=== PATIENT | male | born 1975 | race African-American/Black ===

== ENCOUNTER 2019-11-15 16:42 | Emergency (ER) | payer OTHER ==
[~2019-11-15] VITALS: Ht 185.4 cm; Wt 54.0 kg
--- NOTE | ~2019-11-15 | EMS ---
[address] [address] EMS Patient Care Report Name: PAULA POMPA Room #: DEP SANJAY Harrell#: [id number] Admission: 11/15/19 Attend Phys: Discharge: 11/15/19 Date of : 77 Report #: [id number] THIS REPORT FOR: //name// Report Transmitted: 11/17/2019 07:33 EMS Care Summary [place], [place]/[facility] Incident [phone] @ 11/15/2019 16:00 Incident Location [address] [place] [address] Patient PAULA POMPA Male, 44 Years 1975 Patient Address [address] [place] [address] Patient History None Reported, Patient Allergies Shrimp allergy, Patient Medications None Reported, Chief Complaint WEAKNESS ALL OVER Disposition Transported No Lights/[place] Dispatch Reason Unconscious/Fainting Transported To [facility] Narrative UPON ARRIVAL PT SUPINE ON THE GROUND OF BEDROOM CONSCIOUS AND ALERT BUT SLOW TO RESPOND. PERSON IN CHARGE OF HOUSE STATES PT FELL OUT AND SHE FOUND HIM ON THE FLOOR. PT HAVE BEEN HAVING N/V FOR 3 DAYS NOW AND HASN'T BEEN ABLE TO KEEP DOWN MUCH OF ANYTHING. PT ALSO C/O WEAKNESS. PT NEEDS ASSISTANCE TO AMBULATE TO COT. [address] [address] EMS Patient Care Report Name: PAULA POMPA Room #: DEP ER EbonieCarin#: [id number] Admission: 11/15/19 Attend Phys: Discharge: 11/15/19 Date of : [birth year] Report #: [id number] PT TRANSPORTED TO [facility]. Initial Vitals @16:13P: 33,BP: 135/69,CO: 9, @16:16P: 55,CO: 8,SpO2: 99,LA Suspected: false @16:07P: 50,R: 20,BP: 134/76,Pain: 0/10,GCS: 15,Glucose: 101,SpO2: 99,Revised Trauma: 12, @16:30P: 57,R: 16,BP: 131/76,GCS: 15,CO: 6,SpO2: 100,Revised Trauma: 12, Assessments @16:07MENTAL:Person Oriented,Time Oriented,Event Oriented,Place Oriented,SKIN:Diaphoresis,HEENT:Head/Face: No Abnormalities,LUNG SOUNDS:General: Vomiting,General: Nausea,ABDOMEN:General: Vomiting,General: Nausea,PELVIS//GI:EXTREMITIES:Left Arm: No Abnormalities,Right Arm: No Abnormalities,Left Leg: No Abnormalities,Right Leg: No Abnormalities,PULSE:Radial: 2+ Normal,NEURO:No Abnormalities, Impression Generalized Weakness Procedures @16:07ALS AssessmentResponse: UnchangedSucceeded@16:1612-Lead ECG Timeline 15:59,Call Received 15:59,Dispatch Notified 16:00,Dispatched 16:02,En Route 16:05,On Scene 16:06,At Patient 16:07,BP: 134/76 M,PULSE: 50,RR: 20 R,SPO2: 99 Ox,ETCO2: ,B,PAIN: 0,GCS: 15, 16:07,ALS Assessment,Response: UnchangedSucceeded, 16:13,BP: 135/69 M,PULSE: 33,RR: R,SPO2: Ox,ETCO2: ,BG: ,PAIN: ,GCS: , 16:16,12-Lead ECG, 16:16,BP: / M,PULSE: 55,RR: R,SPO2: 99 Ox,ETCO2: ,BG: ,PAIN: ,GCS: , 16:18,Depart Scene 16:30,BP: 131/76 M,PULSE: 57,RR: 16 R,SPO2: 100 Ox,ETCO2: ,BG: ,PAIN: ,GCS: 15, 16:33,At Destination 16:50,Call Closed Disclaimer v1.1 Copyright 2020 [employer] This EMS Care Summary contains data elements from the applicable legal record (which may be displayed differently). It is designed to provide pertinent information for the following purposes: continuity of care, clinical quality, [address] [address] EMS Patient Care Report Name: PAULA POMPA Room #: DEP SANJAY Harrell#: [id number] Admission: 11/15/19 Attend Phys: Discharge: 11/15/19 Date of : [birth year] Report #: [id number] and state data reporting. The complete legal record is available to ED staff and administrators of the receiving hospital in [facility]'s Patient Tracker. All data is provided "as is."
[2019-11-15 17:25] LABS: ABSOLUTE NEUTROPHILS 4.5 thou/uL (1.4-8.2); BASOPHILS 0.5 % (0.0-2.0); EOSINOPHILS 0.3 % (0.0-3.0); HEMATOCRIT 51.2 % (42.0-52.0); HEMOGLOBIN 17.2 gm/dL (14.0-18.0); MCH 27.9 pg (26.0-34.0); MCHC 33.6 g/dL (28.0-37.0); MCV 82.9 fL (80.0-100.0); MONOCYTES 7.7 % (1.0-8.0); PLATELET COUNT 204 thou/uL (150-400); POLYS 74.5 % (36.0-66.0); RBC 6.18 mil/uL (4.50-6.00); RDW 14.9 % (10.5-14.5); WBC 6.1 thou/uL (4.0-11.0)
[2019-11-15 17:32] LABS: ANION GAP 10 mmol/L (7-16); BUN 27 mg/dL (7-18); CALCIUM 10.1 mg/dL (8.5-10.1); CHLORIDE 94 mmol/L (98-107); CO2 30 mmol/L (21-32); CREATININE 1.2 mg/dL (0.7-1.3); GLUCOSE 84 mg/dL (74-106); POTASSIUM 3.9 mmol/L (3.5-5.1); SODIUM 134 mmol/L (136-145)
[2019-11-15 17:35] LABS: MAGNESIUM 2.4 mg/dL (1.8-2.4)
[2019-11-15 17:43] LABS: ALBUMIN 4.8 g/dL (3.4-5.0); LIPASE 153 U/L (73-393); SGOT 26 U/L (15-37); SGPT 17 U/L (30-65); TOTAL BILIRUBIN 1.6 mg/dL (0.2-1.0); TOTAL PROTEIN 9.4 g/dL (6.4-8.2); TROPONIN-I <0.06 ng/mL (<0.06)
[2019-11-15] MEDS ORDERED: PHENERGAN 25 MG25 M1 PO (21:07)
[2019-11-15 21:48] VITALS: BP 137/74
--- NOTE | 2019-11-17 08:30 | EKG ---
[facility] [place] [address] ELECTROCARDIOGRAM REPORT Name: PAULA POMPA Room #: DEP [facility].#: [id number] Admission: 11/15/19 Attend Phys: Discharge: 11/15/19 Date of : 77 Report #: [id number] THIS REPORT FOR: cc: MILEY - No family physician/PCP MILEY - No family physician/PCP Valeriano Gary MD [facility] THIS REPORT FOR: //name// [facility] ED Test Date: 2019-11-15 Test Time: 17:11:41 Pat Name: PAULA POMPA Department: Room: Gender: Clinician Oncology: [facility] : 1975 Requested By: Shaheed Richardson Order Number: [id number] MD: Valeriano Gary Measurements Intervals [place] Rate: 49 P: 29 NM: 117 QRS: 63 QRSD: 96 T: 44 QT: 495 QTc: 447 Interpretive Statements Sinus bradycardia Borderline short NM interval Probable left ventricular hypertrophy No previous ECG available for comparison Electronically Signed On 11-17-2019 8:30:11 CDT by Valeriano Gary [email or web address] <ELECTRONICALLY SIGNED> By: Valeriano Gary MD, [facility] 11/17/19 0830 10 10 Valeriano Gary MD, [facility] /EPI
== END 2019-11-15 21:50 | disposition home or self-care (01) ==
LOC: ER 16:42
PROVIDERS: Emergency Medicine
DX: R11.2 Nausea with vomiting, unspecified (principal); R42 Dizziness and giddiness; F17.210 Nicotine dependence, cigarettes, uncomplicated; M19.90 Unspecified osteoarthritis, unspecified site; Z88.5 Allergy status to narcotic agent; Z91.013 Allergy to seafood

== ENCOUNTER 2020-01-05 18:12 | Emergency (ER) | payer OTHER ==
[~2020-01-05] VITALS: Ht 182.9 cm; Wt 54.0 kg
[~2020-01-05 18:12] MED LIST: PHENERGAN 25 MG25 M1 PO
[2020-01-05 18:53] LABS: ABSOLUTE NEUTROPHILS 10.4 thou/uL (1.4-8.2); EOSINOPHILS 0.1 % (0.0-3.0)
[2020-01-05 18:55] LABS: BASOPHILS 0.1 % (0.0-2.0); HEMATOCRIT 52.1 % (42.0-52.0); HEMOGLOBIN 17.3 gm/dL (14.0-18.0); LYMPHOCYTES 4.2 % (24.0-44.0); MCH 27.5 pg (26.0-34.0); MCHC 33.3 g/dL (28.0-37.0); MCV 82.8 fL (80.0-100.0); MONOCYTES 10.2 % (1.0-8.0); PLATELET COUNT 276 thou/uL (150-400); POLYS 85.4 % (36.0-66.0); RDW 15.1 % (10.5-14.5); WBC 12.1 thou/uL (4.0-11.0)
[2020-01-05 19:06] LABS: ANION GAP 14 mmol/L (7-16); BUN 54 mg/dL (7-18); CALCIUM 9.4 mg/dL (8.5-10.1); CHLORIDE 98 mmol/L (98-107); CO2 28 mmol/L (21-32); CREATININE 1.2 mg/dL (0.7-1.3); GLUCOSE 114 mg/dL (74-106); POTASSIUM 4.4 mmol/L (3.5-5.1); SODIUM 140 mmol/L (136-145)
[2020-01-05 19:16] LABS: ALBUMIN 5.2 g/dL (3.4-5.0); LIPASE 90 U/L (73-393); SGOT 17 U/L (15-37); SGPT 12 U/L (30-65); TOTAL BILIRUBIN 0.9 mg/dL (0.2-1.0); TOTAL PROTEIN 10.2 g/dL (6.4-8.2); TROPONIN-I <0.06 ng/mL (<0.06)
[2020-01-05 22:17] LABS: URINE BILIRUBIN NEGATIVE (Negative); URINE BLOOD NEGATIVE (Negative); URINE CLARITY CLEAR; URINE COLOR YELLOW; URINE GLUCOSE-RANDOM* NEGATIVE (Negative); URINE KETONES NEGATIVE (Negative); URINE LEUKOCYTES-REFLEX NEGATIVE (Negative); URINE NITRITE-REFLEX NEGATIVE (Negative); URINE PROTEIN (DIPSTICK) NEGATIVE (Negative); URINE SPECIFIC GRAVITY <= 1.005 (1.005-1.035); URINE UROBILINOGEN 0.2 E.U./dl (0.2-1.0)
[2020-01-05 22:24] LABS: AMP/METHAMP Negative (Negative); BARBITURATES Negative (Negative); BENZODIAZEPINES Negative (Negative); COCAINE Negative (Negative); METHADONE Negative (Negative); OPIATES Negative (Negative); PCP Negative (Negative)
[2020-01-05] MEDS ORDERED: PHENERGAN 25 MG25 M1 PO (22:46)
[2020-01-05 23:15] VITALS: BP 115/68
--- NOTE | 2020-01-06 07:42 | EKG ---
[facility] [place] [address] ELECTROCARDIOGRAM REPORT Name: PAULA POMPA Room #: DEP [facility].#: [id number] Admission: 01/05/20 Attend Phys: Discharge: 01/05/20 Date of : 77 Report #: [id number] THIS REPORT FOR: cc: MILEY Townsend family physician/PCP MILEY Townsend family physician/PCP Christiano Lopez MD 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 /EPI
== END 2020-01-05 23:21 | disposition home or self-care (01) ==
LOC: ER 18:12
PROVIDERS: Physician Assistant
DX: R11.2 Nausea with vomiting, unspecified (principal); R10.84 Generalized abdominal pain; F17.210 Nicotine dependence, cigarettes, uncomplicated; Z91.013 Allergy to seafood; Z88.8 Allergy status to other drugs, medicaments and biological substances